=== PATIENT | male | born 1960 | race African-American/Black ===

== ENCOUNTER 2017-04-05 11:41 | Emergency (ER) | payer OTHER ==
[2017-04-05 11:48] VITALS: BP 154/84; PULSE 89; TEMP 99.4; BMI 30.8
--- NOTE | 2017-04-05 12:10 | PDOC ---
History of Present Illness - General Chief Complaint: Asthma Stated Complaint: ASTHMA Time Seen by Provider: 04/05/17 11:57 History Source: Patient Exam Limitations: No Limitations - History of Present Illness Initial Comments: 04/05/17 12:10 My chief complaint: bodyaches, chills, fever, moist cough History of present illness: Patient is a 56-year-old male with a history of hypertension, [id number] diabetes, pacemaker and asthma requiring previous hospitalizations and intubations (last time 25 yrs ago) here today due to having generalized body aches, moist productive cough and wheezing for 2 days , shortness of breath today. He also c/o chills, myalgia with subjective fever. Pt.'s had been ill recently. Pt. did not have his influenza vaccine. Pt. also nasal congestion. Patient denies any sore throat, nausea, vomiting, or diarrhea. She has had no recent travel. 04/05/17 12:11 04/05/17 12:20 04/05/17 13:20 Timing/Duration: getting worse Associated Symptoms: reports: cough (moist ), fever/chills (subjective fever), shortness of breath (today ), other (generalized bodyaches) Past History - Past Medical History Allergies/Adverse Reactions: Allergies Allergy/AdvReac Type Severity Reaction Status Date / Time No Known Allergies Allergy Verified 04/05/17 12:13 Home Medications: Ambulatory Orders Albuterol 0.083% Nebulizer Rosa Isela [Ventolin 0.083%] 1 neb NEB Q4H PRN #1 vial 04/05 Albuterol Sulfate Inhaler - [Ventolin Hfa Inhaler -] 2 inh PO Q4H PRN #1 inh Azithromycin [Zithromax 250mg Tablets -] 250 mg PO UTDICT #6 tab 04/05/17 Budesonide/Formeterol Fumarate [SYMBICORT 160/4.5mcg -] 1 inh PO BID #1 cannister 04/05/17 Lisinopril [Prinivil -] 40 mg PO DAILY 04/05/17 Loratadine [Claritin] 10 mg PO DAILY #7 tablet 04/05/17 Metformin HCl [Glucophage -] 500 mg PO BID 04/05/17 Prednisone [Deltasone -] 20 mg PO BID #8 tablet 04/05/17 Asthma: Yes COPD: No Diabetes: Yes HTN: Yes - Surgical History Cardiac Surgery: (pacemaker) - Suicide/Smoking/Psychosocial Hx Smoking History: Never smoked Have you smoked in the past 12 months: No Hx Alcohol Use: No Drug/Substance Use Hx: No Substance Use Type: None Review of Systems - Review of Systems Able to Perform ROS?: Yes Constitutional: Yes: Fever (subjective ) HEENTM: Yes: Nose Congestion Respiratory: Yes: Cough (moist ), Shortness of Breath (today ), Wheezing. No: SOB at Rest, Stridor, Productive cough ABD/GI: No: Symptoms Reported : No: Symptoms Reported Musculoskeletal: Yes: Other (generalized bodyaches ) Integumentary: No: Symptoms Reported Neurological: No: Symptoms reported *Physical Exam - Vital Signs Last Vital Signs Temp Pulse Resp BP Pulse Ox 99.4 F 89 20 154/84 96 04/05/17 11:46 04/05/17 11:46 04/05/17 11:46 04/05/17 11:46 04/05/17 11:46 Medical Decision Making - Medical Decision Making 04/05/17 13:18 Patient is a 56-year-old male with a history of hypertension, non-insulin- dependent diabetes, pacemaker and asthma requiring previous hospitalizations and intubations (last time 25 yrs ago) here today due to having generalized body aches, moist productive cough and wheezing for 2 days, shortness of breath today. He also c/o chills, myalgia with subjective fever. Pt.'s had been ill recently. Pt. did not have his influenza vaccine. Pt. also nasal congestion. Patient denies any sore throat, nausea, vomiting, or diarrhea. She has had no recent travel. asthma exacerbation r/o infiltrate cough nasal congestion PLAN: Xray Chest PA/lateral negative for infiltrate influenza A & B rapid negative duoneb q15 minutes X 4 prednisone 60 mg po now than 20 mg bid for following 4 days 04/05/17 13:43 pt. feels better less shortness of breath pt. has slight expiratory diffuse b/l, rhonchi left sided clears with cough will treat with azithromycin 250 mg 2 tabs today than one daily for following 4 days ventolin hfa INHALER 2 PUFFS EVERY 4 HRS PRN WHEEZING/SOB SYMBICORT 160MCG/4.5MCG/INH 2 PUFFS BID claritin 10 mg daily X 7 days 04/05/17 14:05 acetaminophen 1000 mg po now *DC/Admit/Observation/Transfer Diagnosis at time of Disposition: Cough, Nasal congestion Asthma with acute exacerbation Qualifiers: Asthma severity: unspecified severity Asthma persistence: unspecified Qualified Code(s): J45.901 - Unspecified asthma with (acute) exacerbation - Discharge Dispostion Disposition: HOME Condition at time of disposition: Stable - Prescriptions Prescriptions: Albuterol 0.083% Nebulizer Rosa Isela [Ventolin 0.083%] 1 neb NEB Q4H PRN #1 vial PRN Reason: Short Of Breath/Wheezing Albuterol Sulfate Inhaler - [Ventolin Hfa Inhaler -] 2 inh PO Q4H PRN #1 inh PRN Reason: Short Of Breath/Wheezing Azithromycin [Zithromax 250mg Tablets -] 250 mg PO UTDICT #6 tab Budesonide/Formeterol Fumarate [SYMBICORT 160/4.5mcg -] 1 inh PO BID #1 cannister Loratadine [Claritin] 10 mg PO DAILY #7 tablet Prednisone [Deltasone -] 20 mg PO BID #8 tablet - Referrals Referrals: Cj Yang MD, MD [Primary Care Provider] - - Patient Instructions Additional Instructions: Follow-up with your primary care provider within the next couple of days Return to emergency room if any difficulty breathing or any new symptoms develop Take acetaminophen as needed as to her to by manufacture for any body aches or fever Drink a lot of fluids and rest Patient voiced understanding of discharge instructions and all questions were answered Thank you for choosing [facility] emergency room for your medical needs today And happy holidays to you - Post Discharge Activity
[2017-04-05] MEDS: ALBUTEROL SO4 2.5/IPRATROPIUM 0.5 INH SOL 3 ML VIAL.NEB. NEB SCH ×4 (12:33→13:33)
[2017-04-05] MEDS ORDERED: predniSONE 20 MG TABLET (UD) PO ONE ×2 (13:17)
[2017-04-05] MEDS ORDERED: predniSONE 20 MG TABLET (UD) ONE (13:20)
[2017-04-05] MEDS ORDERED: ACETAMINOPHEN 500 MG TABLET (FP) PO ONE (14:04)
[2017-04-05] MEDS ORDERED: ACETAMINOPHEN 500 MG TABLET (FP) ONE (14:05)
== END 2017-04-05 14:04 | disposition home or self-care (01) ==
LOC: JER 11:41 → JERFT 11:41
PROC: 3E0F7GC Introduction of Other Therapeutic Substance into Respiratory Tract, Via Natural or Artificial Opening (ICD-10-PCS; principal; 2017-04-05)
DX: J45.901 Unspecified asthma with (acute) exacerbation (principal); R09.89 Other specified symptoms and signs involving the circulatory and respiratory systems; R05 Cough
CPT/HCPCS: 71020-TC; 87804; 94640; 99281-25

== ENCOUNTER 2020-05-07 14:37 | Emergency (ER) | payer OTHER ==
[2020-05-07 15:36] VITALS: BP 106/69; PULSE 66; TEMP 98.2; BMI 31.9
[2020-05-07 16:39] LABS: BASO % 0.6 % (0-2.0); EOS % 3.8 % (0-4.5); LYMPH % 20.1 % (8-40); MCH 30.1 pg (25.7-33.7); MCHC 33.3 g/dl (32.0-35.9); MEAN CELL VOLUME 90.3 fl (80-96); MONO % 9.8 % (3.8-10.2); NEUT % 65.7 % (42.8-82.8); PLATELET COUNT 221 K/MM3 (134-434); RBC 4.65 M/mm3 (4.00-5.60); RDW 14.4 % (11.9-15.9); WHITE BLOOD COUNT 6.4 K/mm3 (4.0-10.0)
[2020-05-07 17:00] LABS: POTASSIUM 5.1 mmol/L (3.5-5.1)
[2020-05-07 17:02] LABS: CALCIUM 9.4 mg/dL (8.5-10.1)
[2020-05-07 17:03] LABS: ALBUMIN 3.5 g/dl (3.4-5.0); BLOOD UREA NITROGEN 19.8 mg/dL (7-18)
[2020-05-07] MEDS ORDERED: ACETAMINOPHEN 325 MG TABLET (FP) PO ONE (17:04)
[2020-05-07 17:06] LABS: CREATININE 1.6 mg/dL (0.55-1.3)
[2020-05-07 17:07] LABS: BILIRUBIN,TOTAL 0.6 mg/dL (0.2-1); TOT PROT 7.1 g/dl (6.4-8.2)
[2020-05-07] MEDS ORDERED: ACETAMINOPHEN 325 MG TABLET (FP) ONE (17:07)
== END 2020-05-07 17:50 | disposition left against medical advice (07) ==
LOC: JER 14:37
DX: M79.10 Myalgia, unspecified site (principal); R07.82 Intercostal pain
CPT/HCPCS: 36415; 71046-TC-FY; 80053; 82550; 82553; 84484; 85025; 93005; 93010; 99285-25

== ENCOUNTER 2020-05-17 20:17 | Inpatient (IN) | payer OTHER ==
[2020-05-17 20:31] VITALS: BMI 31.9
[2020-05-17 21:48] LABS: EOS % 1.8 % (0-4.5); HEMATOCRIT 42.3 % (35.4-49); HEMOGLOBIN 14.3 GM/dL (11.7-16.9); LYMPH % 28.7 % (8-40); MCH 30.1 pg (25.7-33.7); MCHC 33.7 g/dl (32.0-35.9); MEAN CELL VOLUME 89.2 fl (80-96); MEAN PLT VOLUME 9.8 fl (7.5-11.1); MONO % 9.4 % (3.8-10.2); NEUT % 59.1 % (42.8-82.8); PLATELET COUNT 232 K/MM3 (134-434); RBC 4.74 M/mm3 (4.00-5.60); RDW 14.1 % (11.9-15.9); WHITE BLOOD COUNT 6.6 K/mm3 (4.0-10.0)
[2020-05-17 21:56] LABS: INR 0.89 (0.83-1.09)
[2020-05-17 21:58] LABS: ACTIVATED PTT 29.4 SECONDS (25.2-36.5)
[2020-05-17 22:06] LABS: CHLORIDE 99 mmol/L (98-107); POTASSIUM 4.3 mmol/L (3.5-5.1); SODIUM 134 mmol/L (136-145)
[2020-05-17 22:09] LABS: ANION GAP 8 MMOL/L (8-16); BLOOD UREA NITROGEN 23.2 mg/dL (7-18); CO2 27 mmol/L (21-32)
[2020-05-17 22:12] LABS: CHOLESTEROL 359 mg/dL (50-200); CREATININE 1.7 mg/dL (0.55-1.3); TRIGLYCERIDES 872 mg/dL (0-150)
[2020-05-17 22:13] LABS: BILIRUBIN,TOTAL 0.6 mg/dL (0.2-1); LDL CHOLESTEROL (ONLY SJRH) 203 mg/dL (5-100); TOT PROT 7.8 g/dl (6.4-8.2)
[2020-05-17 22:15] LABS: ALK PHOS 151 U/L (45-117); HDL CHOLESTEROL 39 mg/dL (40-60)
[2020-05-17 22:24] LABS: SGOT/AST 48 U/L (15-37); SGPT/ALT 76 U/L (13-61)
[2020-05-17 22:25] LABS: GLUCOSE,RANDOM 415 mg/dL (74-106)
[2020-05-17] MEDS ORDERED: ACETAMINOPHEN 1000 MG/100 ML VIAL (NON FORMULARY) IVPB ONE (22:28)
[2020-05-17] MEDS ORDERED: METOCLOPRAMIDE HCL INJECTION 10 MG/2 ML VIAL IVPUSH ONE (22:33)
[2020-05-17] MEDS ORDERED: ACETAMINOPHEN INJECTION 100 ML IVPB ONE (22:38)
[2020-05-17] MEDS ORDERED: METOCLOPRAMIDE HCL INJECTION 10 MG/2 ML VIAL ONE (22:38)
[2020-05-17] MEDS ORDERED: ROSUVASTATIN CA 10 MG TABLET (FP) PO ONE (22:41)
[2020-05-17] MEDS ORDERED: INSULIN (NOVOLOG) ASPART 100 UNITS/ML 10ML VIAL SQ ONE (23:10)
[2020-05-18] MEDS ORDERED: ACETAMINOPHEN 1000 MG/100 ML VIAL (NON FORMULARY) IVPB ONE (01:51)
[2020-05-18] MEDS ORDERED: LACTATED RINGERS SOLUTION 1,000 ML/1,000 ML INFUS.BAG IV SCH (02:00)
[2020-05-18 02:56] LABS: URINE APPEARANCE CLEAR; URINE BILIRUBIN NEGATIVE (NEGATIVE); URINE COLOR YELLOW; URINE GLUCOSE (UA) 3+ (NEGATIVE); URINE KETONE TRACE (NEGATIVE); URINE LEUK ESTERASE NEGATIVE (NEGATIVE); URINE NITRITE NEGATIVE (NEGATIVE); URINE PROTEIN NEGATIVE (NEGATIVE); URINE UROBILINOGEN 0.2 mg/dL (0.2-1.0)
[2020-05-18] MEDS ORDERED: ACETAMINOPHEN 325 MG TABLET (FP) PO PRN (03:43)
[2020-05-18] MEDS ORDERED: ACETAMINOPHEN INJECTION 100 ML IVPB ONE (03:47)
[2020-05-18 05:11] VITALS: PULSE 62; TEMP 98.4
[2020-05-18] MEDS: HEPARIN NA (PORCINE) 5,000 UNITS/ML 1ML VIAL SQ SCH ×2 (06:51→14:13)
[2020-05-18 07:22] VITALS: BP 140/71
[2020-05-18] MEDS: INSULIN SLIDING SCALE (NOVOLOG) 1 VIAL SQ SCH ×3 (08:29→16:41)
[2020-05-18] MEDS ORDERED: ASPIRIN COATED 81 MG TABLET.EC PO SCH (10:00)
[2020-05-18] MEDS ORDERED: ROSUVASTATIN CA 10 MG TABLET (FP) PO SCH (22:00)
== END 2020-05-18 17:30 | disposition home or self-care (01) | DRG 48 ==
LOC: JER 20:17 → JERBED 22:57
PROVIDERS: ADMIT Hospitalist; ATTEND Internal Medicine
DX: G51.0 Bell's palsy (principal); E11.65 Type 2 diabetes mellitus with hyperglycemia; E11.22 Type 2 diabetes mellitus with diabetic chronic kidney disease; I12.9 Hypertensive chronic kidney disease with stage 1 through stage 4 chronic kidney disease, or unspecified chronic kidney disease; N18.9 Chronic kidney disease, unspecified; Z95.0 Presence of cardiac pacemaker; I44.4 Left anterior fascicular block; Z79.84 Long term (current) use of oral hypoglycemic drugs; E78.5 Hyperlipidemia, unspecified; Z91.14 Patient's other noncompliance with medication regimen; R29.704 NIHSS score 4; R94.31 Abnormal electrocardiogram [ECG] [EKG]; F14.90 Cocaine use, unspecified, uncomplicated
CPT/HCPCS: 36415; 70450-TC; 76775-TC; 80053; 80061; 81003; 82550; 82553; 82962; 83036; 83721; 84300; 84484; 85025; 85610; 85730; 93005; 93010; 99285-25; J0131

== ENCOUNTER 2020-09-17 15:31 | Inpatient (IN) | payer OTHER ==
[2020-09-17 15:44] VITALS: BMI 33.0
[2020-09-17] MEDS ORDERED: MAGNESIUM SULF 50% (8.12 MEQ/2 ML-1 GM VIAL) IVPB ONE (15:55)
[2020-09-17] MEDS: ALBUTEROL SO4 2.5/IPRATROPIUM 0.5 INH SOL 3 ML VIAL.NEB. NEB SCH ×4 (16:00→17:54)
[2020-09-17] MEDS ORDERED: ALBUTEROL SO4 2.5/IPRATROPIUM 0.5 INH SOL 3 ML VIAL.NEB. NEB ONE ×3 (16:07→16:49)
[2020-09-17] MEDS ORDERED: methylPREDNISolone NA SUCC 125 MG/2 ML VIAL IVPB ONE (16:09)
[2020-09-17] MEDS ORDERED: methylPREDNISolone NA SUCC 125 MG/2 ML VIAL ONE (16:23)
[2020-09-17] MEDS ORDERED: MAGNESIUM SULFATE IN WATER 2 GM/50 ML IVPB IVPB ONE (16:23)
[2020-09-17 16:53] LABS: BASO % 0.5 % (0-2.0); EOS % 0.9 % (0-4.5); HEMATOCRIT 37.2 % (35.4-49); HEMOGLOBIN 12.4 GM/dL (11.7-16.9); MCH 29.3 pg (25.7-33.7); MCHC 33.4 g/dl (32.0-35.9); MEAN CELL VOLUME 87.7 fl (80-96); MEAN PLT VOLUME 8.9 fl (7.5-11.1); MONO % 10.4 % (3.8-10.2); NEUT % 73.2 % (42.8-82.8); PLATELET COUNT 273 K/MM3 (134-434); RBC 4.24 M/mm3 (4.00-5.60); WHITE BLOOD COUNT 6.9 K/mm3 (4.0-10.0)
[2020-09-17 17:14] LABS: CALCIUM 8.8 mg/dL (8.5-10.1)
[2020-09-17 17:15] LABS: ALBUMIN 3.1 g/dl (3.4-5.0); BLOOD UREA NITROGEN 16.1 mg/dL (7-18)
[2020-09-17 17:18] LABS: CREATININE 1.3 mg/dL (0.55-1.3)
[2020-09-17 17:20] LABS: BILIRUBIN,TOTAL 0.5 mg/dL (0.2-1); TOT PROT 6.8 g/dl (6.4-8.2)
[2020-09-17 17:43] LABS: N-TERMINAL BNP 1814.3 pg/ml (5-125)
[2020-09-17] MEDS ORDERED: FUROSEMIDE 40 MG/4 ML INJECTABLE VIAL IVPUSH ONE (17:49)
[2020-09-17 17:57] LABS: PH,URINE 5.5 (5.0-8.0); URINE APPEARANCE CLEAR; URINE BILIRUBIN NEGATIVE (NEGATIVE); URINE COLOR YELLOW; URINE GLUCOSE (UA) 3+ (NEGATIVE); URINE KETONE TRACE (NEGATIVE); URINE LEUK ESTERASE NEGATIVE (NEGATIVE); URINE NITRITE NEGATIVE (NEGATIVE); URINE PROTEIN TRACE (NEGATIVE)
[2020-09-17] MEDS ORDERED: FUROSEMIDE 40 MG/4 ML INJECTABLE VIAL ONE (18:02)
[2020-09-17] MEDS ORDERED: ASPIRIN 325 MG TABLET PO ONE (18:29)
[2020-09-17] MEDS ORDERED: ASPIRIN 325 MG ENTERIC COATED TABLET (FP) ONE (18:45)
[2020-09-17] MEDS ORDERED: INSULIN (NOVOLOG) ASPART 100 UNITS/ML 10ML VIAL SQ ONE ×2 (23:25)
[2020-09-18] MEDS ORDERED: ENOXAPARIN NA (PORCINE) 40 MG/0.4 ML DISP.SYRIN SQ ONE ×2 (00:14→09:15)
[2020-09-18] MEDS: INSULIN SLIDING SCALE (NOVOLOG) 1 VIAL SQ SCH ×5 (00:15→22:12)
[2020-09-18] MEDS: ENOXAPARIN NA (PORCINE) 40 MG/0.4 ML DISP.SYRIN SQ SCH ×2 (00:15→09:40)
[2020-09-18] MEDS ORDERED: INSULIN SLIDING SCALE (NOVOLOG) 1 VIAL SQ ONE ×2 (00:16→00:36)
[2020-09-18] MEDS: OMEGA-3 ACID ETHYL ESTERS (FATTY-ACIDS) 1 GM CAPSULE (FP) PO SCH ×2 (00:32→09:40)
[2020-09-18 05:56] LABS: BASO % 0.1 % (0-2.0); HEMATOCRIT 37.8 % (35.4-49); HEMOGLOBIN 12.6 GM/dL (11.7-16.9); LYMPH % 6.1 % (8-40); MCH 29.5 pg (25.7-33.7); MCHC 33.4 g/dl (32.0-35.9); MEAN CELL VOLUME 88.4 fl (80-96); MEAN PLT VOLUME 8.9 fl (7.5-11.1); NEUT % 88.8 % (42.8-82.8); PLATELET COUNT 279 K/MM3 (134-434); RBC 4.27 M/mm3 (4.00-5.60); RDW 14.9 % (11.9-15.9); WHITE BLOOD COUNT 8.2 K/mm3 (4.0-10.0)
[2020-09-18 06:17] LABS: ALBUMIN 3.1 g/dl (3.4-5.0); MAGNESIUM 2.3 mg/dL (1.8-2.4)
[2020-09-18 06:20] LABS: PHOSPHOROUS 3.3 mg/dL (2.5-4.9)
[2020-09-18 06:21] LABS: CREATININE 1.5 mg/dL (0.55-1.3)
[2020-09-18 06:22] LABS: BILIRUBIN,TOTAL 0.5 mg/dL (0.2-1)
[2020-09-18] MEDS ORDERED: INSULIN (LEVEMIR) 100 UNITS/ML UNITS SQ ONE ×4 (07:57→11:56)
[2020-09-18] MEDS ORDERED: ASPIRIN COATED 81 MG TABLET.EC ONE (09:14)
[2020-09-18] MEDS ORDERED: FUROSEMIDE 40 MG/4 ML INJECTABLE VIAL ONE (09:15)
[2020-09-18] MEDS ORDERED: LISINOPRIL 20 MG TABLET ONE (09:15)
[2020-09-18] MEDS: FUROSEMIDE 40 MG/4 ML INJECTABLE VIAL IVPUSH SCH (09:40)
[2020-09-18] MEDS: ASPIRIN COATED 81 MG TABLET.EC PO SCH (09:40)
[2020-09-18] MEDS: LISINOPRIL 20 MG TABLET PO SCH (09:40)
[2020-09-18] MEDS ORDERED: INSULIN (NOVOLOG) ASPART 100 UNITS/ML 10ML VIAL ONE (21:59)
[2020-09-18] MEDS ORDERED: INSULIN (LEVEMIR) 100 UNITS/ML UNITS SQ SCH (22:00)
[2020-09-18] MEDS: ROSUVASTATIN CA 20 MG TABLET (FP) PO SCH (22:11)
[2020-09-19] MEDS: INSULIN SLIDING SCALE (NOVOLOG) 1 VIAL SQ SCH ×4 (06:19→21:31)
[2020-09-19 07:11] LABS: BASO % 0.6 % (0-2.0); EOS % 0.6 % (0-4.5); HEMATOCRIT 36.5 % (35.4-49); HEMOGLOBIN 12.2 GM/dL (11.7-16.9); LYMPH % 22.3 % (8-40); MCH 29.6 pg (25.7-33.7); MCHC 33.4 g/dl (32.0-35.9); MEAN CELL VOLUME 88.5 fl (80-96); MEAN PLT VOLUME 8.6 fl (7.5-11.1); MONO % 8.1 % (3.8-10.2); NEUT % 68.4 % (42.8-82.8); PLATELET COUNT 301 K/MM3 (134-434); RBC 4.12 M/mm3 (4.00-5.60); RDW 14.7 % (11.9-15.9)
[2020-09-19 07:26] LABS: CALCIUM 9.1 mg/dL (8.5-10.1)
[2020-09-19 07:30] LABS: CREATININE 1.4 mg/dL (0.55-1.3)
[2020-09-19 07:35] LABS: BLOOD UREA NITROGEN 23.4 mg/dL (7-18)
[2020-09-19] MEDS: ENOXAPARIN NA (PORCINE) 40 MG/0.4 ML DISP.SYRIN SQ SCH (09:43)
[2020-09-19] MEDS: FUROSEMIDE 40 MG/4 ML INJECTABLE VIAL IVPUSH SCH (09:44)
[2020-09-19] MEDS: LISINOPRIL 20 MG TABLET PO SCH (09:44)
[2020-09-19] MEDS: INSULIN (LEVEMIR) 100 UNITS/ML UNITS SQ SCH ×2 (09:44→21:32)
[2020-09-19] MEDS: ASPIRIN COATED 81 MG TABLET.EC PO SCH (09:44)
[2020-09-19] MEDS: INSULIN (NOVOLOG) ASPART 100 UNITS/ML 10ML VIAL SQ SCH ×2 (12:35→17:57)
[2020-09-19] MEDS ORDERED: INSULIN (NOVOLOG) ASPART 100 UNITS/ML 10ML VIAL ONE (21:24)
[2020-09-19] MEDS: ROSUVASTATIN CA 20 MG TABLET (FP) PO SCH (21:32)
[2020-09-20] MEDS: INSULIN (LEVEMIR) 100 UNITS/ML UNITS SQ SCH (06:15)
[2020-09-20] MEDS: INSULIN (NOVOLOG) ASPART 100 UNITS/ML 10ML VIAL SQ SCH ×2 (06:15→12:10)
[2020-09-20] MEDS: INSULIN SLIDING SCALE (NOVOLOG) 1 VIAL SQ SCH ×2 (06:16→12:10)
[2020-09-20] MEDS: ENOXAPARIN NA (PORCINE) 40 MG/0.4 ML DISP.SYRIN SQ SCH ×2 (10:43→12:11)
[2020-09-20] MEDS: FUROSEMIDE 40 MG/4 ML INJECTABLE VIAL IVPUSH SCH ×2 (10:43→12:12)
[2020-09-20] MEDS: ASPIRIN COATED 81 MG TABLET.EC PO SCH ×2 (10:43→12:12)
[2020-09-20] MEDS: LISINOPRIL 20 MG TABLET PO SCH ×2 (10:43→12:12)
[2020-09-20 14:55] VITALS: BP 149/94; PULSE 66; TEMP 98
== END 2020-09-20 15:51 | disposition home or self-care (01) | DRG 194 ==
LOC: JER 15:31 → JERBED 17:26 → J4W 09-18 14:36
PROVIDERS: ADMIT Internal Medicine; ATTEND Internal Medicine
DX: I11.0 Hypertensive heart disease with heart failure (principal); I50.33 Acute on chronic diastolic (congestive) heart failure; J45.901 Unspecified asthma with (acute) exacerbation; E78.5 Hyperlipidemia, unspecified; E11.40 Type 2 diabetes mellitus with diabetic neuropathy, unspecified; E66.9 Obesity, unspecified; Z68.33 Body mass index [BMI] 33.0-33.9, adult; I44.7 Left bundle-branch block, unspecified; I44.0 Atrioventricular block, first degree; R59.0 Localized enlarged lymph nodes; R91.8 Other nonspecific abnormal finding of lung field; E78.1 Pure hyperglyceridemia; E11.65 Type 2 diabetes mellitus with hyperglycemia; R00.1 Bradycardia, unspecified; M54.9 Dorsalgia, unspecified; I24.8 Other forms of acute ischemic heart disease; R11.0 Nausea; Z86.73 Personal history of transient ischemic attack (TIA), and cerebral infarction without residual deficits; Z95.0 Presence of cardiac pacemaker
CPT/HCPCS: 36415; 71046-TC-FY; 71250-TC; 80048; 80053; 80061; 81003; 82550; 82553; 82962; 83036; 83721; 83735; 83880; 84100; 84484; 85025; 87086; 93005; 93010; 93306-TC; 99285-25; C9803; U0003; U0005

== ENCOUNTER 2020-11-06 23:53 | Observation (INO) | payer OTHER ==
[2020-11-07 00:35] VITALS: BMI 31.6
[2020-11-07 01:52] LABS: BASO % 0.8 % (0-2.0); EOS % 3.9 % (0-4.5); HEMOGLOBIN 12.4 GM/dL (11.7-16.9); LYMPH % 25.8 % (8-40); MCH 28.1 pg (25.7-33.7); MCHC 32.7 g/dl (32.0-35.9); MEAN PLT VOLUME 7.9 fl (7.5-11.1); MONO % 10.5 % (3.8-10.2); PLATELET COUNT 265 10^3/uL (134-434); RBC 4.42 M/mm3 (4.00-5.60); RDW 15.4 % (11.9-15.9)
[2020-11-07 02:13] LABS: CALCIUM 9.2 mg/dL (8.5-10.1)
[2020-11-07 02:14] LABS: ALBUMIN 3.9 g/dl (3.4-5.0); BLOOD UREA NITROGEN 22.3 mg/dL (7-18)
[2020-11-07 02:17] LABS: CREATININE 1.3 mg/dL (0.55-1.3)
[2020-11-07 02:19] LABS: BILIRUBIN,TOTAL 0.7 mg/dL (0.2-1); TOT PROT 7.2 g/dl (6.4-8.2)
[2020-11-07 02:23] LABS: N-TERMINAL BNP 1496.6 pg/ml (5-125)
[2020-11-07] MEDS: FUROSEMIDE 40 MG/4 ML INJECTABLE VIAL IVPUSH SCH ×2 (04:20→10:25)
[2020-11-07] MEDS ORDERED: ACETAMINOPHEN 325 MG TABLET (FP) ONE (07:08)
[2020-11-07] MEDS: ACETAMINOPHEN 325 MG TABLET (FP) PO PRN ×2 (07:16→21:30)
[2020-11-07] MEDS: INSULIN SLIDING SCALE (NOVOLOG) 1 VIAL SQ SCH ×4 (07:23→21:29)
[2020-11-07] MEDS ORDERED: LISINOPRIL 20 MG TABLET PO ONE (07:57)
[2020-11-07] MEDS ORDERED: FUROSEMIDE 40 MG/4 ML INJECTABLE VIAL IVPUSH SCH (10:00)
[2020-11-07] MEDS ORDERED: PATIENT'S OWN MEDICATION (NON-FORMULARY) (Lisinopril [Prinivil -] 40 MG Tablet) PO SCH (10:00)
[2020-11-07] MEDS: LISINOPRIL 20 MG TABLET PO SCH (10:25)
[2020-11-07] MEDS: ASPIRIN COATED 81 MG TABLET.EC PO SCH (10:25)
[2020-11-07 15:10] LABS: MAGNESIUM 2.2 mg/dL (1.8-2.4)
[2020-11-07 15:14] LABS: PHOSPHOROUS 3.8 mg/dL (2.5-4.9)
[2020-11-07] MEDS: ROSUVASTATIN CA 20 MG TABLET (FP) PO SCH (21:30)
[2020-11-07] MEDS ORDERED: KETOROLAC TROMETHAMINE 15 MG/ML VIAL IM ONE (22:45)
[2020-11-08] MEDS ORDERED: traMADol HCL 50 MG TABLET PO ONE (01:31)
[2020-11-08] MEDS: INSULIN SLIDING SCALE (NOVOLOG) 1 VIAL SQ SCH ×4 (06:06→21:05)
[2020-11-08 07:13] LABS: BASO % 0.7 % (0-2.0); EOS % 4.1 % (0-4.5); HEMATOCRIT 40.4 % (35.4-49); HEMOGLOBIN 13.3 GM/dL (11.7-16.9); LYMPH % 23.6 % (8-40); MCH 28.4 pg (25.7-33.7); MCHC 32.9 g/dl (32.0-35.9); MEAN CELL VOLUME 86.3 fl (80-96); MEAN PLT VOLUME 7.9 fl (7.5-11.1); MONO % 10.7 % (3.8-10.2); NEUT % 60.9 % (42.8-82.8); PLATELET COUNT 283 10^3/uL (134-434); RBC 4.69 M/mm3 (4.00-5.60); RDW 15.1 % (11.9-15.9); WHITE BLOOD COUNT 6.9 K/mm3 (4.0-10.0)
[2020-11-08 07:42] LABS: CALCIUM 9.2 mg/dL (8.5-10.1); MAGNESIUM 2.2 mg/dL (1.8-2.4)
[2020-11-08 07:43] LABS: ALBUMIN 3.7 g/dl (3.4-5.0)
[2020-11-08 07:46] LABS: CREATININE 1.5 mg/dL (0.55-1.3)
[2020-11-08 07:47] LABS: BILIRUBIN,TOTAL 0.6 mg/dL (0.2-1); TOT PROT 7.4 g/dl (6.4-8.2)
[2020-11-08] MEDS: LISINOPRIL 20 MG TABLET PO SCH (09:36)
[2020-11-08] MEDS: FUROSEMIDE 40 MG/4 ML INJECTABLE VIAL IVPUSH SCH (09:36)
[2020-11-08] MEDS: ASPIRIN COATED 81 MG TABLET.EC PO SCH (09:36)
[2020-11-08] MEDS ORDERED: REGADENOSON 0.4 MG/5 ML PRE-FILLED SYRINGE IVPUSH ONE ×2 (09:52→10:00)
[2020-11-08] MEDS ORDERED: PT OWN MED DRAWER 7, Y5N ONE (11:56)
[2020-11-08] MEDS ORDERED: LIDOCAINE 5% TOPICAL PATCH TP SCH (12:15)
[2020-11-08] MEDS: ROSUVASTATIN CA 20 MG TABLET (FP) PO SCH (21:04)
[2020-11-08] MEDS ORDERED: LIDOCAINE PATCH REMOVAL MC SCH (22:00)
[2020-11-09] MEDS: ACETAMINOPHEN 325 MG TABLET (FP) PO PRN (02:46)
[2020-11-09] MEDS ORDERED: LIDOCAINE 5% TOPICAL PATCH TP SCH ×3 (05:43→10:00)
[2020-11-09] MEDS: INSULIN SLIDING SCALE (NOVOLOG) 1 VIAL SQ SCH ×3 (06:10→16:45)
[2020-11-09 07:49] LABS: BASO % 0.8 % (0-2.0); EOS % 2.8 % (0-4.5); HEMATOCRIT 39.8 % (35.4-49); HEMOGLOBIN 13.6 GM/dL (11.7-16.9); LYMPH % 21.3 % (8-40); MCH 29.3 pg (25.7-33.7); MCHC 34.1 g/dl (32.0-35.9); MEAN CELL VOLUME 86.1 fl (80-96); MEAN PLT VOLUME 8.3 fl (7.5-11.1); MONO % 11.3 % (3.8-10.2); NEUT % 63.8 % (42.8-82.8); PLATELET COUNT 287 10^3/uL (134-434); RBC 4.62 M/mm3 (4.00-5.60)
[2020-11-09 08:00] LABS: ALBUMIN 3.5 g/dl (3.4-5.0); BLOOD UREA NITROGEN 25.1 mg/dL (7-18); MAGNESIUM 2.1 mg/dL (1.8-2.4)
[2020-11-09 08:02] LABS: CREATININE 1.5 mg/dL (0.55-1.3)
[2020-11-09 08:04] LABS: BILIRUBIN,TOTAL 0.4 mg/dL (0.2-1); TOT PROT 7.3 g/dl (6.4-8.2)
[2020-11-09] MEDS ORDERED: FUROSEMIDE 40 MG TABLET (FP) PO SCH (10:00)
[2020-11-09] MEDS: ASPIRIN COATED 81 MG TABLET.EC PO SCH (10:09)
[2020-11-09] MEDS: LISINOPRIL 20 MG TABLET PO SCH (10:10)
[2020-11-09 10:15] VITALS: TEMP 98.3
[2020-11-09 14:55] VITALS: BP 131/79; PULSE 64
[2020-11-09] MEDS ORDERED: LIDOCAINE PATCH REMOVAL MC ONE (18:00)
[2020-11-09] MEDS ORDERED: INSULIN (LEVEMIR) 100 UNITS/ML UNITS SQ SCH (22:00)
[2020-11-10] MEDS ORDERED: LIDOCAINE PATCH REMOVAL MC SCH (22:00)
== END 2020-11-09 16:55 | disposition short-term general hospital (02) ==
LOC: JER 23:53 → INTOOBSV 11-07 01:49 → UNDOADMOB 11-07 01:49 → JERBED 11-07 01:49 → J4S 11-07 08:28 → JERBED 11-07 13:22
PROVIDERS: ADMIT Internal Medicine; ATTEND Nurse Practitioner Acute Care
PROC: 3E033GC Introduction of Other Therapeutic Substance into Peripheral Vein, Percutaneous Approach (ICD-10-PCS; principal; 2020-11-07)
PROC: 3E0233Z Introduction of Anti-inflammatory into Muscle, Percutaneous Approach (ICD-10-PCS; 2020-11-07)
DX: I11.0 Hypertensive heart disease with heart failure (principal); J45.909 Unspecified asthma, uncomplicated; E11.9 Type 2 diabetes mellitus without complications; Z95.0 Presence of cardiac pacemaker; I50.9 Heart failure, unspecified; E66.9 Obesity, unspecified; Z68.32 Body mass index [BMI] 32.0-32.9, adult; R00.1 Bradycardia, unspecified; Z86.73 Personal history of transient ischemic attack (TIA), and cerebral infarction without residual deficits; I50.32 Chronic diastolic (congestive) heart failure
CPT/HCPCS: 36415; 71045-TC-FY; 78452-TC; 80053; 82550; 82553; 82962; 83735; 83880; 84100; 84484; 85025; 93005; 93010; 93017; 96372; 96374; 96375; 96376; 99285-25; A9502; C9803; G0378; J2785; U0003; U0005

== ENCOUNTER 2021-05-27 16:20 | Observation (INO) | payer OTHER ==
[2021-05-27 17:04] VITALS: BMI 33.0
[2021-05-27] MEDS ORDERED: ASPIRIN 81 MG CHEWABLE TABLETS PO ONE (18:03)
[2021-05-27] MEDS ORDERED: ASPIRIN 81 MG CHEWABLE TABLETS ONE (18:09)
[2021-05-27 18:54] LABS: BASO % 0.5 % (0-2.0); EOS % 2.1 % (0-4.5); HEMATOCRIT 43.3 % (35.4-49); HEMOGLOBIN 13.7 GM/dL (11.7-16.9); LYMPH % 25.6 % (8-40); MCH 27.9 pg (25.7-33.7); MCHC 31.6 g/dl (32.0-35.9); MEAN CELL VOLUME 88.1 fl (80-96); MEAN PLT VOLUME 8.3 fl (7.5-11.1); MONO % 10.6 % (3.8-10.2); NEUT % 61.2 % (42.8-82.8); PLATELET COUNT 225 10^3/uL (134-434); RBC 4.92 M/mm3 (4.00-5.60)
[2021-05-27 19:00] LABS: INR 1.09 (0.83-1.09); PROTHROMBIN TIME (PATIENT) 12.6 SEC (9.7-13.0)
[2021-05-27 19:03] LABS: ACTIVATED PTT 33.1 SECONDS (25.2-36.5)
[2021-05-27 19:18] LABS: ALBUMIN 3.7 g/dl (3.4-5.0); CALCIUM 9.4 mg/dL (8.5-10.1)
[2021-05-27 19:20] LABS: BLOOD UREA NITROGEN 16.1 mg/dL (7-18)
[2021-05-27 19:22] LABS: CREATININE 1.2 mg/dL (0.55-1.3)
[2021-05-27 19:23] LABS: TOT PROT 7.4 g/dl (6.4-8.2)
[2021-05-27 19:24] LABS: BILIRUBIN,TOTAL 0.6 mg/dL (0.2-1)
[2021-05-27 22:49] LABS: URINE BARBITURATES NEGATIVE (NEGATIVE)
[2021-05-27 22:50] LABS: COCAINE, UR NEGATIVE (NEGATIVE); PHENCYCLIDINE,URINE NEGATIVE (NEGATIVE); URINE AMPHETAMINES NEGATIVE (NEGATIVE); URINE BENZODIAZEPINES NEGATIVE (NEGATIVE)
[2021-05-27 22:52] LABS: METHADONE, UR NEGATIVE (NEGATIVE); OPIATES, URI NEGATIVE (NEGATIVE)
[2021-05-27 22:55] LABS: EPI CELLS 5 /uL (0-25.1); HYALINE CASTS 1 /uL (0-3.1); URINE APPEARANCE CLEAR; URINE BACTERIA 13 /uL (0-1359); URINE BILIRUBIN NEGATIVE (NEGATIVE); URINE COLOR YELLOW; URINE GLUCOSE (UA) NEGATIVE (NEGATIVE); URINE KETONE TRACE (NEGATIVE); URINE LEUK ESTERASE NEGATIVE (NEGATIVE); URINE NITRITE NEGATIVE (NEGATIVE); URINE PROTEIN 1+ (NEGATIVE); URINE RBC 13 /uL (0-23.9); URINE WBC 7 /uL (0-25.8)
[2021-05-27] MEDS ORDERED: CLOPIDOGREL BISULFATE 75 MG TABLET (FP) PO ONE (23:45)
[2021-05-28] MEDS: INSULIN SLIDING SCALE (NOVOLOG) 1 VIAL SQ SCH ×3 (06:13→17:06)
[2021-05-28 07:26] LABS: BASO % 0.5 % (0-2.0); HEMATOCRIT 39.5 % (35.4-49); HEMOGLOBIN 13.1 GM/dL (11.7-16.9); LYMPH % 23.7 % (8-40); MCHC 33.2 g/dl (32.0-35.9); MEAN CELL VOLUME 87.5 fl (80-96); MEAN PLT VOLUME 8.2 fl (7.5-11.1); MONO % 10.4 % (3.8-10.2); NEUT % 63.4 % (42.8-82.8); PLATELET COUNT 195 10^3/uL (134-434); RBC 4.52 M/mm3 (4.00-5.60); RDW 14.7 % (11.9-15.9); WHITE BLOOD COUNT 5.7 K/mm3 (4.0-10.0)
[2021-05-28 07:53] LABS: ALBUMIN 3.4 g/dl (3.4-5.0); BLOOD UREA NITROGEN 17.2 mg/dL (7-18)
[2021-05-28 07:55] LABS: PHOSPHOROUS 3.4 mg/dL (2.5-4.9)
[2021-05-28 07:56] LABS: CREATININE 1.1 mg/dL (0.55-1.3)
[2021-05-28 07:57] LABS: BILIRUBIN,TOTAL 0.6 mg/dL (0.2-1); TOT PROT 6.8 g/dl (6.4-8.2)
[2021-05-28] MEDS ORDERED: ARTIFICIAL TEARS (POLYVINYL ALCOHOL) OPTH DROPS OS PRN (09:59)
[2021-05-28] MEDS ORDERED: ASPIRIN COATED 81 MG TABLET.EC PO SCH ×2 (10:00)
[2021-05-28] MEDS ORDERED: CLOPIDOGREL BISULFATE 75 MG TABLET (FP) PO SCH (10:00)
[2021-05-28] MEDS ORDERED: LISINOPRIL 20 MG TABLET PO SCH (10:00)
[2021-05-28] MEDS ORDERED: ENOXAPARIN NA (PORCINE) 40 MG/0.4 ML DISP.SYRIN SQ SCH (10:00)
[2021-05-28] MEDS ORDERED: FUROSEMIDE 40 MG TABLET (FP) PO SCH (10:00)
[2021-05-28] MEDS ORDERED: ARTIFICIAL TEARS (POLYVINYL ALCOHOL) OPTH DROPS OS SCH (10:15)
[2021-05-28 16:04] VITALS: BP 117/74; PULSE 60; TEMP 98.5
[2021-05-28 17:19] LABS: HIV INTERPRETATION NEGATIVE (NEGATIVE)
[2021-05-28] MEDS ORDERED: ROSUVASTATIN CA 20 MG TABLET PO SCH (22:00)
== END 2021-05-28 19:27 | disposition home or self-care (01) ==
LOC: JER 16:20 → UNDOADMOB 17:52 → INTOOBSV 17:52 → JERBED 17:52 → J4W 23:11 → JERBED 23:11 → J4W 05-28 13:56 → JERBED 05-28 13:56
PROVIDERS: ADMIT Internal Medicine; ATTEND Internal Medicine
PROC: 3E023GC Introduction of Other Therapeutic Substance into Muscle, Percutaneous Approach (ICD-10-PCS; principal; 2021-05-28)
PROC: 3E013VG Introduction of Insulin into Subcutaneous Tissue, Percutaneous Approach (ICD-10-PCS; 2021-05-28)
DX: I25.10 Atherosclerotic heart disease of native coronary artery without angina pectoris (principal); I11.0 Hypertensive heart disease with heart failure; Z95.0 Presence of cardiac pacemaker; R07.9 Chest pain, unspecified; R47.81 Slurred speech; E78.5 Hyperlipidemia, unspecified; E66.9 Obesity, unspecified; Z68.33 Body mass index [BMI] 33.0-33.9, adult; Z29.9 Encounter for prophylactic measures, unspecified
CPT/HCPCS: 36415; 70450-TC; 71045-TC-FY; 80053; 80061; 80307; 81003; 82550; 82553; 82962; 83036; 83735; 84100; 84484; 85025; 85610; 85730; 86618; 86850; 86900; 86901; 87389; 87804; 87807; 93005; 93010; 93306-TC; 93880-TC; 96372; 99285-25; C9803; G0378; U0003; U0005

== ENCOUNTER 2021-08-13 13:21 | Observation (INO) | payer OTHER ==
[2021-08-13] MEDS ORDERED: methylPREDNISolone NA SUCC 125 MG/2 ML VIAL IVPUSH ONE (14:08)
[2021-08-13] MEDS ORDERED: ALBUTEROL SO4 2.5/IPRATROPIUM 0.5 INH SOL 3 ML VIAL.NEB. NEB ONE ×3 (14:10→21:06)
[2021-08-13] MEDS: ALBUTEROL SO4 2.5/IPRATROPIUM 0.5 INH SOL 3 ML VIAL.NEB. NEB SCH ×3 (14:15→14:45)
[2021-08-13] MEDS ORDERED: methylPREDNISolone NA SUCC 125 MG/2 ML VIAL ONE (14:37)
[2021-08-13 15:15] LABS: BASO % 0.5 % (0-2.0); EOS % 0.4 % (0-4.5); HEMATOCRIT 44.3 % (35.4-49); HEMOGLOBIN 14.3 GM/dL (11.7-16.9); LYMPH % 8.1 % (8-40); MCH 28.4 pg (25.7-33.7); MCHC 32.3 g/dl (32.0-35.9); MEAN CELL VOLUME 87.8 fl (80-96); MEAN PLT VOLUME 8.5 fl (7.5-11.1); MONO % 11.6 % (3.8-10.2); NEUT % 79.4 % (42.8-82.8); PLATELET COUNT 190 10^3/uL (134-434); RBC 5.04 M/mm3 (4.00-5.60); RDW 14.7 % (11.9-15.9); WHITE BLOOD COUNT 7.9 K/mm3 (4.0-10.0)
[2021-08-13 15:21] LABS: INR 1.12 (0.83-1.09); PROTHROMBIN TIME (PATIENT) 12.9 SEC (9.7-13.0); VENOUS BASE EXCESS -2.8 mmol/L (-2-2); VENOUS O2 SATURATION 51.6 % (70-80); VENOUS PCO2 53.2 mmHg (38-52); VENOUS PH 7.283 (7.310-7.410)
[2021-08-13 15:24] LABS: ACTIVATED PTT 33.6 SECONDS (25.2-36.5)
[2021-08-13 15:38] LABS: CALCIUM 9.3 mg/dL (8.5-10.1)
[2021-08-13 15:39] LABS: ALBUMIN 3.9 g/dl (3.4-5.0); BLOOD UREA NITROGEN 16.2 mg/dL (7-18)
[2021-08-13 15:44] LABS: BILIRUBIN,TOTAL 0.6 mg/dL (0.2-1); TOT PROT 7.4 g/dl (6.4-8.2)
[2021-08-13 15:47] LABS: N-TERMINAL BNP 1262.5 pg/ml (5-125)
[2021-08-13] MEDS ORDERED: methylPREDNISolone NA SUCC 40 MG/1 ML VIAL IVPUSH SCH (16:15)
[2021-08-13] MEDS ORDERED: amLODIPine BESYLATE 10 MG TABLET (FP) PO ONE (16:23)
[2021-08-13] MEDS ORDERED: methylPREDNISolone NA SUCC 40 MG/1 ML VIAL ONE (16:27)
[2021-08-13] MEDS ORDERED: ALBUTEROL SO4 0.083% IH SOL 2.5 MG/3 ML VIAL.NEB. NEB PRN (18:00)
[2021-08-13] MEDS ORDERED: ALBUTEROL SO4 2.5/IPRATROPIUM 0.5 INH SOL 3 ML VIAL.NEB. NEB SCH ×2 (18:00→20:00)
[2021-08-13] MEDS ORDERED: ACETAMINOPHEN 325 MG TABLET (FP) PO PRN (19:02)
[2021-08-13] MEDS ORDERED: ALBUTEROL SO4 HFA INHALER IH PRN (19:15)
[2021-08-13] MEDS ORDERED: ENOXAPARIN NA (PORCINE) 40 MG/0.4 ML DISP.SYRIN SQ ONE (20:49)
[2021-08-13] MEDS ORDERED: PANTOPRAZOLE SODIUM 40 MG/100 ML BAG IVPB ONE (20:49)
[2021-08-13] MEDS ORDERED: CARVEDILOL 25 MG TABLET (FP) ONE (20:49)
[2021-08-13] MEDS: ENOXAPARIN NA (PORCINE) 40 MG/0.4 ML DISP.SYRIN SQ SCH (22:09)
[2021-08-13] MEDS: PANTOPRAZOLE SODIUM 40 MG VIAL IVPUSH SCH (22:09)
[2021-08-13] MEDS: INSULIN (LEVEMIR) 100 UNITS/ML UNITS SQ SCH (22:10)
[2021-08-13] MEDS: SACUBITRIL/VALSARTAN 97 MG-103 MG TABLET PO SCH (22:10)
[2021-08-13] MEDS: ROSUVASTATIN CA 20 MG TABLET PO SCH (22:10)
[2021-08-13] MEDS: CARVEDILOL 25 MG TABLET (FP) PO SCH (22:10)
[2021-08-13] MEDS: ARTIFICIAL TEARS (POLYVINYL ALCOHOL) OPTH DROPS OS SCH (22:10)
[2021-08-13] MEDS: INSULIN SLIDING SCALE (NOVOLOG) 1 VIAL SQ SCH (22:10)
[2021-08-13] MEDS: OSELTAMIVIR PHOSPHATE 75 MG CAPSULE PO SCH (22:11)
[2021-08-14 00:25] VITALS: BMI 34.1
[2021-08-14] MEDS: INSULIN SLIDING SCALE (NOVOLOG) 1 VIAL SQ SCH ×4 (06:15→21:39)
[2021-08-14] MEDS: ALBUTEROL SO4 2.5/IPRATROPIUM 0.5 INH SOL 3 ML VIAL.NEB. NEB PRN ×3 (07:56→22:34)
[2021-08-14 09:30] LABS: BASO % 0.1 % (0-2.0); HEMATOCRIT 43.1 % (35.4-49); LYMPH % 5.8 % (8-40); MCH 28.4 pg (25.7-33.7); MCHC 32.4 g/dl (32.0-35.9); MEAN CELL VOLUME 87.7 fl (80-96); MEAN PLT VOLUME 8.6 fl (7.5-11.1); MONO % 8.3 % (3.8-10.2); NEUT % 85.8 % (42.8-82.8); PLATELET COUNT 192 10^3/uL (134-434); RBC 4.91 M/mm3 (4.00-5.60); RDW 15.3 % (11.9-15.9)
[2021-08-14 09:49] LABS: ALBUMIN 3.6 g/dl (3.4-5.0); CALCIUM 9.3 mg/dL (8.5-10.1)
[2021-08-14 09:50] LABS: BLOOD UREA NITROGEN 26.6 mg/dL (7-18); MAGNESIUM 2.2 mg/dL (1.8-2.4)
[2021-08-14 09:52] LABS: CREATININE 1.3 mg/dL (0.55-1.3)
[2021-08-14 09:53] LABS: PHOSPHOROUS 3.1 mg/dL (2.5-4.9)
[2021-08-14 09:54] LABS: BILIRUBIN,TOTAL 1.1 mg/dL (0.2-1); TOT PROT 7.3 g/dl (6.4-8.2)
[2021-08-14] MEDS ORDERED: methylPREDNISolone NA SUCC 40 MG/1 ML VIAL IVPUSH SCH (10:00)
[2021-08-14] MEDS: EZETIMIBE 10 MG TABLET (FP) PO SCH (10:16)
[2021-08-14] MEDS: CARVEDILOL 25 MG TABLET (FP) PO SCH ×2 (10:16→21:38)
[2021-08-14] MEDS: ASPIRIN COATED 81 MG TABLET.EC PO SCH (10:16)
[2021-08-14] MEDS: PANTOPRAZOLE SODIUM 40 MG VIAL IVPUSH SCH (10:16)
[2021-08-14] MEDS: amLODIPine BESYLATE 10 MG TABLET (FP) PO SCH (10:16)
[2021-08-14] MEDS: methylPREDNISolone NA SUCC 40 MG/1 ML VIAL IVPUSH SCH (10:16)
[2021-08-14] MEDS: ENOXAPARIN NA (PORCINE) 40 MG/0.4 ML DISP.SYRIN SQ SCH (10:17)
[2021-08-14] MEDS: ARTIFICIAL TEARS (POLYVINYL ALCOHOL) OPTH DROPS OS SCH ×2 (10:17→21:39)
[2021-08-14] MEDS: SACUBITRIL/VALSARTAN 97 MG-103 MG TABLET PO SCH ×2 (10:18→21:38)
[2021-08-14] MEDS: OSELTAMIVIR PHOSPHATE 75 MG CAPSULE PO SCH ×2 (10:19→21:39)
[2021-08-14] MEDS: ROSUVASTATIN CA 20 MG TABLET PO SCH (21:38)
[2021-08-14] MEDS: INSULIN (LEVEMIR) 100 UNITS/ML UNITS SQ SCH (21:39)
[2021-08-14] MEDS: BUDESONIDE/FORMETEROL FUMARATE 160/4.5 mcg INHALER IH SCH (21:39)
[2021-08-15] MEDS: INSULIN SLIDING SCALE (NOVOLOG) 1 VIAL SQ SCH ×2 (06:15→12:02)
[2021-08-15] MEDS: ALBUTEROL SO4 2.5/IPRATROPIUM 0.5 INH SOL 3 ML VIAL.NEB. NEB PRN (06:33)
[2021-08-15] MEDS ORDERED: BENZOCAINE/MENTH/CETYLPYRD CL 1 EACH LOZENGE MM ONE (06:38)
[2021-08-15 07:23] LABS: BASO % 0.1 % (0-2.0); HEMATOCRIT 43.9 % (35.4-49); HEMOGLOBIN 14.4 GM/dL (11.7-16.9); LYMPH % 5.9 % (8-40); MCH 28.7 pg (25.7-33.7); MCHC 32.8 g/dl (32.0-35.9); MEAN CELL VOLUME 87.4 fl (80-96); MEAN PLT VOLUME 8.6 fl (7.5-11.1); MONO % 10.2 % (3.8-10.2); NEUT % 83.8 % (42.8-82.8); PLATELET COUNT 214 10^3/uL (134-434); RBC 5.02 M/mm3 (4.00-5.60); RDW 15.3 % (11.9-15.9); WHITE BLOOD COUNT 11.3 K/mm3 (4.0-10.0)
[2021-08-15 07:42] LABS: ALBUMIN 3.4 g/dl (3.4-5.0); CALCIUM 9.4 mg/dL (8.5-10.1); MAGNESIUM 2.4 mg/dL (1.8-2.4)
[2021-08-15 07:43] LABS: BLOOD UREA NITROGEN 30.6 mg/dL (7-18)
[2021-08-15 07:45] LABS: CREATININE 1.2 mg/dL (0.55-1.3)
[2021-08-15 07:47] LABS: BILIRUBIN,TOTAL 0.5 mg/dL (0.2-1); TOT PROT 7.1 g/dl (6.4-8.2)
[2021-08-15] MEDS: ASPIRIN COATED 81 MG TABLET.EC PO SCH (09:27)
[2021-08-15] MEDS: CARVEDILOL 25 MG TABLET (FP) PO SCH (09:28)
[2021-08-15] MEDS: methylPREDNISolone NA SUCC 40 MG/1 ML VIAL IVPUSH SCH (09:28)
[2021-08-15] MEDS: ENOXAPARIN NA (PORCINE) 40 MG/0.4 ML DISP.SYRIN SQ SCH (09:28)
[2021-08-15] MEDS: OSELTAMIVIR PHOSPHATE 75 MG CAPSULE PO SCH (09:29)
[2021-08-15] MEDS: SACUBITRIL/VALSARTAN 97 MG-103 MG TABLET PO SCH (09:29)
[2021-08-15] MEDS: ARTIFICIAL TEARS (POLYVINYL ALCOHOL) OPTH DROPS OS SCH (09:29)
[2021-08-15] MEDS: PANTOPRAZOLE SODIUM 40 MG VIAL IVPUSH SCH (09:30)
[2021-08-15] MEDS: amLODIPine BESYLATE 10 MG TABLET (FP) PO SCH (09:30)
[2021-08-15] MEDS: BUDESONIDE/FORMETEROL FUMARATE 160/4.5 mcg INHALER IH SCH (09:30)
[2021-08-15] MEDS: EZETIMIBE 10 MG TABLET (FP) PO SCH (12:02)
[2021-08-15 15:18] VITALS: BP 119/75; PULSE 61; TEMP 97.9
== END 2021-08-15 18:01 | disposition home or self-care (01) ==
LOC: JER 13:21 → JERBED 17:48 → INTOOBSV 17:48 → UNDOADMOB 17:48 → JERBED 18:29 → UNDOADMOB 18:34 → JERBED 18:34 → J4S 22:28
PROVIDERS: ADMIT Internal Medicine; ATTEND Internal Medicine
PROC: 3E0F7GC Introduction of Other Therapeutic Substance into Respiratory Tract, Via Natural or Artificial Opening (ICD-10-PCS; principal; 2021-08-13)
PROC: 3E013VG Introduction of Insulin into Subcutaneous Tissue, Percutaneous Approach (ICD-10-PCS; 2021-08-13)
PROC: 3E033GC Introduction of Other Therapeutic Substance into Peripheral Vein, Percutaneous Approach (ICD-10-PCS; 2021-08-13)
DX: J09.X2 Influenza due to identified novel influenza A virus with other respiratory manifestations (principal); I25.10 Atherosclerotic heart disease of native coronary artery without angina pectoris; G51.0 Bell's palsy; J45.41 Moderate persistent asthma with (acute) exacerbation; I11.0 Hypertensive heart disease with heart failure; I50.30 Unspecified diastolic (congestive) heart failure; E66.9 Obesity, unspecified; Z68.34 Body mass index [BMI] 34.0-34.9, adult
CPT/HCPCS: 0241U-QW; 36415; 71045-TC-FY; 80053; 82803; 82962; 83735; 83880; 84100; 84484; 85025; 85610; 85730; 87040; 87807; 93005; 93010; 94640; 96372; 96374; 96375; 96376; 99285-25; C9803-CS; G0378; U0003; U0005

== ENCOUNTER 2022-02-16 08:22 | Inpatient (IN) | payer OTHER ==
[2022-02-16 08:32] VITALS: BP 152/91; PULSE 82; RESP 18; TEMP 97.3; BMI 33.0
[2022-02-16] MEDS ORDERED: METOCLOPRAMIDE HCL INJECTION 10 MG/2 ML VIAL IVPB ONE (10:15)
[2022-02-16] MEDS ORDERED: ACETAMINOPHEN 1000 MG/100 ML BAG IVPB ONE (10:15)
[2022-02-16] MEDS ORDERED: ACETAMINOPHEN INJECTION 100 ML IVPB ONE (12:23)
[2022-02-16] MEDS ORDERED: METOCLOPRAMIDE HCL INJECTION 10 MG/2 ML VIAL ONE (12:23)
[2022-02-16 12:58] LABS: BASO % 0.7 % (0-2.0); EOS % 2.6 % (0-4.5); HEMOGLOBIN 14.4 GM/dL (11.7-16.9); LYMPH % 22.6 % (8-40); MCH 28.6 pg (25.7-33.7); MCHC 33.4 g/dl (32.0-35.9); MEAN CELL VOLUME 85.4 fl (80-96); MEAN PLT VOLUME 8.4 fl (7.5-11.1); MONO % 11.6 % (3.8-10.2); NEUT % 62.5 % (42.8-82.8); PLATELET COUNT 215 10^3/uL (134-434); RBC 5.03 M/mm3 (4.00-5.60); WHITE BLOOD COUNT 5.4 K/mm3 (4.0-10.0)
[2022-02-16 12:59] LABS: INR 1.13 (0.83-1.09)
[2022-02-16 13:19] LABS: CALCIUM 9.3 mg/dL (8.5-10.1)
[2022-02-16 13:20] LABS: ALBUMIN 3.6 g/dl (3.4-5.0); BLOOD UREA NITROGEN 13.8 mg/dL (7-18)
[2022-02-16 13:24] LABS: BILIRUBIN,TOTAL 0.5 mg/dL (0.2-1); TOT PROT 7.6 g/dl (6.4-8.2)
[2022-02-16] MEDS ORDERED: ENOXAPARIN NA (PORCINE) 40 MG/0.4 ML DISP.SYRIN SQ SCH (16:45)
[2022-02-16] MEDS ORDERED: ASPIRIN 81 MG CHEWABLE TABLETS PO ONE ×2 (18:40→19:11)
[2022-02-16] MEDS ORDERED: EZETIMIBE 10 MG TABLET (FP) PO ONE (18:40)
[2022-02-16] MEDS ORDERED: ENOXAPARIN NA (PORCINE) 40 MG/0.4 ML DISP.SYRIN SQ ONE (20:02)
[2022-02-16] MEDS ORDERED: ASPIRIN 81 MG CHEWABLE TABLETS ONE (20:02)
[2022-02-16] MEDS ORDERED: SACUBITRIL/VALSARTAN 97 MG-103 MG TABLET PO SCH (22:00)
[2022-02-16] MEDS ORDERED: ATORVASTATIN CA 40 MG TABLET (FP) PO SCH (22:00)
[2022-02-16] MEDS ORDERED: ATORVASTATIN CA 40 MG TABLET (FP) ONE (22:10)
[2022-02-16] MEDS ORDERED: predniSONE 20 MG TABLET (UD) PO ONE (22:25)
[2022-02-16 22:32] LABS: HIV INTERPRETATION NEGATIVE (NEGATIVE)
[2022-02-17] MEDS ORDERED: INSULIN SLIDING SCALE (NOVOLOG) 1 VIAL SQ SCH (07:00)
== END 2022-02-16 23:05 | disposition left against medical advice (07) | DRG 48 ==
LOC: JER 08:22 → JERBED 10:27
PROVIDERS: ADMIT Internal Medicine; ATTEND Internal Medicine
DX: G51.0 Bell's palsy (principal); I25.10 Atherosclerotic heart disease of native coronary artery without angina pectoris; E11.9 Type 2 diabetes mellitus without complications; I10 Essential (primary) hypertension; E78.5 Hyperlipidemia, unspecified; I11.0 Hypertensive heart disease with heart failure; I50.9 Heart failure, unspecified; H53.2 Diplopia; Z79.84 Long term (current) use of oral hypoglycemic drugs
CPT/HCPCS: 0241U-QW; 36415; 70450-TC; 70496-TC; 70498-TC; 71046-TC-FY; 80053; 82962; 84484; 85025; 85610; 85651; 85730; 86038; 86140; 86618; 86780; 86850; 86900; 86901; 87389; 99285-25

== ENCOUNTER 2022-04-13 08:19 | Emergency (ER) | payer OTHER ==
[2022-04-13 08:38] VITALS: BP 175/87; PULSE 80; RESP 18; BMI 31.4
[2022-04-13] MEDS ORDERED: ACETAMINOPHEN 500 MG TABLET (FP) PO ONE (08:48)
[2022-04-13 10:08] VITALS: TEMP 100.4
== END 2022-04-13 10:12 | disposition home or self-care (01) ==
LOC: JER 08:19
DX: U07.1 COVID-19 (principal); J06.9 Acute upper respiratory infection, unspecified
CPT/HCPCS: 0241U-QW; 99283-25

== ENCOUNTER 2022-09-12 21:41 | Observation (INO) | payer OTHER ==
[2022-09-12] MEDS ORDERED: methylPREDNISolone NA SUCC 125 MG/2 ML VIAL IVPUSH ONE (22:38)
[2022-09-12] MEDS ORDERED: methylPREDNISolone NA SUCC 125 MG/2 ML VIAL ONE (22:43)
[2022-09-12] MEDS ORDERED: ALBUTEROL SO4 2.5/IPRATROPIUM 0.5 INH SOL 3 ML VIAL.NEB. NEB ONE (22:43)
[2022-09-12] MEDS: ALBUTEROL SO4 2.5/IPRATROPIUM 0.5 INH SOL 3 ML VIAL.NEB. NEB SCH ×2 (23:03→23:55)
[2022-09-12 23:09] LABS: BASO % 0.4 % (0-2.0); EOS % 1.9 % (0-4.5); HEMATOCRIT 40.2 % (35.4-49); HEMOGLOBIN 13.4 GM/dL (11.7-16.9); MCH 28.6 pg (25.7-33.7); MCHC 33.3 g/dl (32.0-35.9); MEAN CELL VOLUME 85.7 fl (80-96); MEAN PLT VOLUME 8.2 fl (7.5-11.1); NEUT % 68.7 % (42.8-82.8); PLATELET COUNT 199 10^3/uL (134-434); RDW 15.4 % (11.9-15.9); WHITE BLOOD COUNT 7.2 K/mm3 (4.0-10.0)
[2022-09-12 23:26] LABS: POTASSIUM 4.6 mmol/L (3.5-5.1)
[2022-09-12 23:29] LABS: ALBUMIN 3.6 g/dl (3.4-5.0)
[2022-09-12 23:30] LABS: BLOOD UREA NITROGEN 18.2 mg/dL (7-18)
[2022-09-12 23:32] LABS: CREATININE 1.5 mg/dL (0.55-1.3)
[2022-09-12 23:33] LABS: BILIRUBIN,TOTAL 0.6 mg/dL (0.2-1); TOT PROT 7.7 g/dl (6.4-8.2)
[2022-09-12 23:52] LABS: N-TERMINAL BNP 431.5 pg/ml (5-125)
[2022-09-13] MEDS ORDERED: MAGNESIUM SULF 50% (8.12 MEQ/2 ML-1 GM VIAL) IVPB ONE (01:03)
[2022-09-13] MEDS ORDERED: MAGNESIUM SULFATE IN WATER 2 GM/50 ML IVPB IVPB ONE (01:07)
[2022-09-13] MEDS: ALBUTEROL SO4 2.5/IPRATROPIUM 0.5 INH SOL 3 ML VIAL.NEB. NEB SCH ×6 (01:13→20:08)
[2022-09-13] MEDS ORDERED: ALBUTEROL SO4 2.5/IPRATROPIUM 0.5 INH SOL 3 ML VIAL.NEB. NEB SCH (02:00)
[2022-09-13] MEDS ORDERED: SODIUM CHLORIDE 1,000 ML IV SCH ×2 (02:15)
[2022-09-13 03:56] VITALS: BMI 33.1
[2022-09-13] MEDS: HEPARIN NA (PORCINE) 5,000 UNITS/ML 1ML VIAL SQ SCH ×3 (05:47→21:23)
[2022-09-13] MEDS ORDERED: INSULIN (NOVOLOG) ASPART 100 UNITS/ML 10ML VIAL ONE ×4 (06:39→21:16)
[2022-09-13] MEDS: INSULIN SLIDING SCALE (NOVOLOG) 1 VIAL SQ SCH ×4 (06:45→21:27)
[2022-09-13 09:16] LABS: BASO % 0.1 % (0-2.0); HEMOGLOBIN 13.2 GM/dL (11.7-16.9); LYMPH % 8.1 % (8-40); MCH 29.2 pg (25.7-33.7); MCHC 33.9 g/dl (32.0-35.9); MEAN CELL VOLUME 86.3 fl (80-96); MONO % 2.6 % (3.8-10.2); NEUT % 89.2 % (42.8-82.8); PLATELET COUNT 191 10^3/uL (134-434); RBC 4.52 M/mm3 (4.00-5.60); RDW 15.3 % (11.9-15.9); WHITE BLOOD COUNT 6.4 K/mm3 (4.0-10.0)
[2022-09-13 09:55] LABS: CHLORIDE 108 mmol/L (98-107); SODIUM 140 mmol/L (136-145)
[2022-09-13] MEDS ORDERED: ARTIFICIAL TEARS (POLYVINYL ALCOHOL) OPTH DROPS OS SCH (10:00)
[2022-09-13] MEDS ORDERED: predniSONE 20 MG TABLET (UD) PO SCH (10:00)
[2022-09-13 10:01] LABS: ALBUMIN 3.3 g/dl (3.4-5.0); CALCIUM 9.1 mg/dL (8.5-10.1)
[2022-09-13 10:02] LABS: ANION GAP 4 MMOL/L (8-16); BLOOD UREA NITROGEN 20.5 mg/dL (7-18); CO2 27 mmol/L (21-32); MAGNESIUM 2.4 mg/dL (1.8-2.4)
[2022-09-13 10:04] LABS: CREATININE 1.4 mg/dL (0.55-1.3)
[2022-09-13 10:05] LABS: PHOSPHOROUS 2.2 mg/dL (2.5-4.9); SGPT/ALT 17 U/L (13-61)
[2022-09-13 10:06] LABS: BILIRUBIN,TOTAL 0.6 mg/dL (0.2-1); TOT PROT 7.3 g/dl (6.4-8.2)
[2022-09-13 10:07] LABS: ALK PHOS 104 U/L (45-117)
[2022-09-13 10:09] LABS: GLUCOSE,RANDOM 419 mg/dL (74-106); SGOT/AST 10 U/L (15-37)
[2022-09-13] MEDS: SACUBITRIL/VALSARTAN 97 MG-103 MG TABLET PO SCH ×2 (10:20→21:24)
[2022-09-13] MEDS: CARVEDILOL 25 MG TABLET (FP) PO SCH ×2 (10:20→21:21)
[2022-09-13] MEDS: ASPIRIN COATED 81 MG TABLET.EC PO SCH (10:20)
[2022-09-13] MEDS: EZETIMIBE 10 MG TABLET (FP) PO SCH (10:20)
[2022-09-13] MEDS: methylPREDNISolone NA SUCC 40 MG/1 ML VIAL IVPUSH SCH ×2 (10:20→17:24)
[2022-09-13] MEDS: CLOPIDOGREL BISULFATE 75 MG TABLET (FP) PO SCH (11:58)
[2022-09-13] MEDS: BUDESONIDE/FORMETEROL FUMARATE 160/4.5 mcg INHALER IH SCH ×2 (13:55→21:28)
[2022-09-13] MEDS: guaiFENesin 200 MG/10 ML 10 ML UNIT-DOSE CUPS PO PRN ×2 (13:55→21:28)
[2022-09-13] MEDS: ROSUVASTATIN CA 20 MG TABLET PO SCH (21:22)
[2022-09-14] MEDS: methylPREDNISolone NA SUCC 40 MG/1 ML VIAL IVPUSH SCH ×3 (01:16→17:26)
[2022-09-14] MEDS: HEPARIN NA (PORCINE) 5,000 UNITS/ML 1ML VIAL SQ SCH ×3 (05:48→21:42)
[2022-09-14] MEDS: ALBUTEROL SO4 2.5/IPRATROPIUM 0.5 INH SOL 3 ML VIAL.NEB. NEB SCH ×4 (07:30→20:16)
[2022-09-14] MEDS ORDERED: INSULIN (NOVOLOG) ASPART 100 UNITS/ML 10ML VIAL ONE ×4 (07:58→21:25)
[2022-09-14] MEDS: INSULIN SLIDING SCALE (NOVOLOG) 1 VIAL SQ SCH ×4 (08:00→21:44)
[2022-09-14] MEDS: BUDESONIDE/FORMETEROL FUMARATE 160/4.5 mcg INHALER IH SCH ×2 (09:24→21:47)
[2022-09-14] MEDS: SACUBITRIL/VALSARTAN 97 MG-103 MG TABLET PO SCH ×2 (09:24→21:41)
[2022-09-14] MEDS: EZETIMIBE 10 MG TABLET (FP) PO SCH (09:24)
[2022-09-14] MEDS: CLOPIDOGREL BISULFATE 75 MG TABLET (FP) PO SCH (09:24)
[2022-09-14] MEDS: guaiFENesin 200 MG/10 ML 10 ML UNIT-DOSE CUPS PO PRN (09:24)
[2022-09-14] MEDS: CARVEDILOL 25 MG TABLET (FP) PO SCH ×2 (09:24→21:41)
[2022-09-14] MEDS: ASPIRIN COATED 81 MG TABLET.EC PO SCH (09:24)
[2022-09-14] MEDS ORDERED: SODIUM CHLORIDE FOR INHALATION 3 ML VIAL.NEB IH PRN (11:24)
[2022-09-14] MEDS: guaiFENesin 600 MG TABLET.ER (FP) PO SCH ×2 (15:19→21:41)
[2022-09-14 17:24] VITALS: RESP 20
[2022-09-14] MEDS: ROSUVASTATIN CA 20 MG TABLET PO SCH (21:41)
[2022-09-15] MEDS: HEPARIN NA (PORCINE) 5,000 UNITS/ML 1ML VIAL SQ SCH ×2 (06:27→13:01)
[2022-09-15] MEDS: INSULIN SLIDING SCALE (NOVOLOG) 1 VIAL SQ SCH ×2 (07:28→12:54)
[2022-09-15] MEDS: ALBUTEROL SO4 2.5/IPRATROPIUM 0.5 INH SOL 3 ML VIAL.NEB. NEB SCH ×2 (08:40→11:45)
[2022-09-15] MEDS: CLOPIDOGREL BISULFATE 75 MG TABLET (FP) PO SCH (09:39)
[2022-09-15] MEDS: ASPIRIN COATED 81 MG TABLET.EC PO SCH (09:39)
[2022-09-15] MEDS: BUDESONIDE/FORMETEROL FUMARATE 160/4.5 mcg INHALER IH SCH (09:39)
[2022-09-15] MEDS: guaiFENesin 600 MG TABLET.ER (FP) PO SCH (09:39)
[2022-09-15] MEDS: EZETIMIBE 10 MG TABLET (FP) PO SCH (09:39)
[2022-09-15] MEDS: CARVEDILOL 25 MG TABLET (FP) PO SCH (09:40)
[2022-09-15] MEDS: SACUBITRIL/VALSARTAN 97 MG-103 MG TABLET PO SCH (09:40)
[2022-09-15] MEDS ORDERED: predniSONE 20 MG TABLET (UD) PO SCH (10:00)
[2022-09-15] MEDS ORDERED: INSULIN (NOVOLOG) ASPART 100 UNITS/ML 10ML VIAL ONE (12:50)
[2022-09-15 14:45] VITALS: BP 142/83; PULSE 60; TEMP 98.4
[2022-09-16] MEDS ORDERED: predniSONE 20 MG TABLET (UD) PO SCH (10:00)
== END 2022-09-15 15:20 | disposition home or self-care (01) ==
LOC: JER 21:41 → JERBED 09-13 01:07 → J8W 09-13 02:45
PROVIDERS: ADMIT Internal Medicine; ATTEND Nurse Practitioner Family
PROC: 3E0333Z Introduction of Anti-inflammatory into Peripheral Vein, Percutaneous Approach (ICD-10-PCS; principal; 2022-09-13)
PROC: 3E033GC Introduction of Other Therapeutic Substance into Peripheral Vein, Percutaneous Approach (ICD-10-PCS; 2022-09-13)
PROC: 3E013VG Introduction of Insulin into Subcutaneous Tissue, Percutaneous Approach (ICD-10-PCS; 2022-09-13)
PROC: 3E013GC Introduction of Other Therapeutic Substance into Subcutaneous Tissue, Percutaneous Approach (ICD-10-PCS; 2022-09-13)
PROC: 3E0337Z Introduction of Electrolytic and Water Balance Substance into Peripheral Vein, Percutaneous Approach (ICD-10-PCS; 2022-09-13)
PROC: 3E0F7SF Introduction of Other Gas into Respiratory Tract, Via Natural or Artificial Opening (ICD-10-PCS; 2022-09-13)
DX: J45.901 Unspecified asthma with (acute) exacerbation (principal); I11.0 Hypertensive heart disease with heart failure; I50.9 Heart failure, unspecified; E11.65 Type 2 diabetes mellitus with hyperglycemia; E11.22 Type 2 diabetes mellitus with diabetic chronic kidney disease; I13.0 Hypertensive heart and chronic kidney disease with heart failure and stage 1 through stage 4 chronic kidney disease, or unspecified chronic kidney disease; I50.30 Unspecified diastolic (congestive) heart failure; N18.9 Chronic kidney disease, unspecified; N17.9 Acute kidney failure, unspecified; Z79.4 Long term (current) use of insulin; R00.1 Bradycardia, unspecified; I25.10 Atherosclerotic heart disease of native coronary artery without angina pectoris; E78.5 Hyperlipidemia, unspecified; Z86.16 Personal history of COVID-19; Z95.5 Presence of coronary angioplasty implant and graft; Z95.0 Presence of cardiac pacemaker; Z79.84 Long term (current) use of oral hypoglycemic drugs; E66.9 Obesity, unspecified; Z68.33 Body mass index [BMI] 33.0-33.9, adult; G51.0 Bell's palsy
CPT/HCPCS: 0241U-QW; 36415; 71045-TC-FY; 80053; 82962; 83735; 83880; 84100; 84484; 85025; 93005; 93010; 94640; 96372; 96374; 96375; 99285-25; G0378; J1644